=== PATIENT | female | born 1975 | race Caucasian/White ===

== ENCOUNTER 2020-01-26 11:20 | Day surgery (SDC) | payer OTHER ==
[~2020-01-26] VITALS: Ht 170.2 cm; Wt 49.4 kg
[2020-01-26] MEDS ORDERED: TOPA100T12 PO (13:06)
[2020-01-26] MEDS ORDERED: CELE20TA PO (13:06)
[2020-01-26] MEDS ORDERED: DULO1CAP4 PO (13:06)
[2020-01-26] MEDS ORDERED: KLON0.5T PO (13:06)
[2020-01-26] MEDS ORDERED: NS 1,000 ML IV ONE (13:15)
[2020-01-26] MEDS ORDERED: fentaNYL 100 MCG/2 ML INJECTION (J3010) As Ordered ONE (13:21)
[2020-01-26] MEDS ORDERED: LIDOCAINE 2% 100MG/5ML SDV (FOR ANES.) As Ordered ONE ×2 (13:21→13:45)
[2020-01-26] MEDS ORDERED: propofoL 200 MG/20 ML VIAL As Ordered ONE ×2 (13:21→13:45)
[2020-01-26 14:15] VITALS: BP 113/64
--- NOTE | 2020-02-11 11:30 | ROOR ---
Patient Name: Antonietta Burdick Procedure Date: 01/26/2020 11:43 AM Date of : 1975 Age: 44 Room: [facility] Gender: Female Note Status: Finalized Procedure: Upper Endoscopy + Biopsies Indications: Epigastric abdominal pain, Heartburn, Diarrhea Providers: Ilya Collazo MD Referring MD: Diego Molina MD Requesting Provider: Medicines: Monitored Anesthesia Care Complications: No immediate complications. Procedure: Pre-Anesthesia Assessment: - The heart rate, respiratory rate, oxygen saturations, blood pressure, adequacy of pulmonary ventilation, and response to care were monitored throughout the procedure. The Endoscope was introduced through the mouth, and advanced to the second part of duodenum. The upper GI endoscopy was accomplished without difficulty. The patient tolerated the procedure well. Findings: The Z-line was irregular and was found 40 cm from the incisors. Localized mildly erythematous mucosa without bleeding was found in the gastric antrum. Biopsies were taken with a cold forceps for Helicobacter pylori testing. The exam of the duodenum was otherwise normal. Biopsies for histology were taken with a cold forceps in the first portion of the duodenum for evaluation of celiac disease. The exam was otherwise without abnormality. Impression: - Z-line irregular, 40 cm from the incisors. - Erythematous mucosa in the antrum. Biopsied. - The examination was otherwise normal. - Biopsies were taken with a cold forceps for evaluation of celiac disease. - The examination was otherwise normal. Recommendation: - Patient has a contact number available for emergencies. The signs and symptoms of potential delayed complications were discussed with the patient. Return to normal activities tomorrow. Written discharge instructions were provided to the patient. - High fiber diet. - Discharge patient to home. - Follow an antireflux regimen. - Continue present medications. - Await pathology results. - Telephone GI clinic for pathology results in 1 week. - Return to referring physician. - The findings and recommendations were discussed with the patient. Ilya Collazo MD Ilya Collazo MD 01/26/2020 1:29:18 PM Number of Addenda: 0 Note Initiated On: 01/26/2020 11:43 AM Estimated Blood Loss: Estimated blood loss: none.
--- NOTE | 2020-02-11 11:30 | ROOR ---
Patient Name: Antonietta Burdick Procedure Date: 01/26/2020 11:42 AM Date of : 1975 Age: 44 Room: [facility] Gender: Female Note Status: Combination [employer] Over[employer] Procedure: Total Colonoscopy to Cecum + Bx. To r/o Microscopic Colitis Indications: Lower abdominal pain, Clinically significant diarrhea of unexplained origin Providers: Ilya Collazo MD Referring MD: Diego Molina MD Requesting Provider: Medicines: Monitored Anesthesia Care Complications: No immediate complications. Procedure: Pre-Anesthesia Assessment: - The heart rate, respiratory rate, oxygen saturations, blood pressure, adequacy of pulmonary ventilation, and response to care were monitored throughout the procedure. The Colonoscope was introduced through the anus and advanced to the cecum, identified by appendiceal orifice and ileocecal valve. The colonoscopy was performed without difficulty. The patient tolerated the procedure well. The quality of the bowel preparation was good. Findings: The perianal and digital rectal examinations were normal. No other significant abnormalities were identified in a careful examination of the remainder of the colon. Biopsies for histology were taken with a cold forceps from the ascending colon, transverse colon and descending colon for evaluation of microscopic colitis. The exam was otherwise without abnormality. Impression: - The examination was otherwise normal. - Biopsies were taken with a cold forceps from the ascending colon, transverse colon and descending colon for evaluation of microscopic colitis. - The exam was otherwise normal to the cecum. Recommendation: - Patient has a contact number available for emergencies. The signs and symptoms of potential delayed complications were discussed with the patient. Return to normal activities tomorrow. Written discharge instructions were provided to the patient. - High fiber diet. - Continue present medications. - Await pathology results. - Telephone GI clinic for pathology results in 1 week. - Repeat colonoscopy in 10 years for screening purposes. - Return to referring physician. - The findings and recommendations were discussed with the patient. Ilya Collazo MD Ilya Collazo MD 01/26/2020 1:48:47 PM Number of Addenda: 0 Note Initiated On: 01/26/2020 11:42 AM Estimated Blood Loss: Estimated blood loss: none.
== END 2020-01-26 14:23 | disposition home or self-care (01) ==
LOC: M OPP 11:20
PROVIDERS: ATTEND Internal Medicine Gastroenterology
DX: K52.832 Lymphocytic colitis (principal); R19.7 Diarrhea, unspecified; R11.0 Nausea; R63.4 Abnormal weight loss; R10.30 Lower abdominal pain, unspecified; K22.8 Other specified diseases of esophagus; K31.89 Other diseases of stomach and duodenum; R12 Heartburn; F17.210 Nicotine dependence, cigarettes, uncomplicated; Z79.899 Other long term (current) drug therapy; Z88.5 Allergy status to narcotic agent
CPT/HCPCS: 43239; 45380; 88305; J3010

== ENCOUNTER → 2020-02-03 | Outpatient (CLI) | payer OTHER ==
[~2020-02-03] MED LIST: CELE20TA PO; DULO1CAP4 PO; GASTROGRAFIN SOLUTION 30ML (Q9963) As Ordered ONE; ISOVUE-370 76% 100ML VIAL As Ordered ONE; KLON0.5T PO; TOPA100T12 PO
--- NOTE | 2020-02-10 10:45 | REP ---
CONTRAST ENHANCED CT ABDOMEN AND PELVIS CLINICAL: Abdominal pain and abnormal weight loss. TECHNIQUE: Axial contrast enhanced images from the lung bases to the pubic symphysis using oral (per protocol) and 100 mL intravenous contrast material with coronal and sagittal reformations. Precontrast images of the abdomen were obtained. FINDINGS: Lung bases are clear. Visualized heart and pericardium normal. Liver, spleen, pancreas, gallbladder, bilateral adrenal glands, and kidneys are normal. The enteric system is without obstruction or acute inflammatory process. Pelvis demonstrates normal bladder and evidence for prior hysterectomy. No ascites. No free air. No adenopathy. Abdominal aorta and vasculature without aneurysm or dissection. Musculoskeletal structures are intact. IMPRESSION: No acute abdominopelvic pathology appreciated. Evidence for prior hysterectomy. MTDD
== END ==
LOC: M RAD 11:33
PROVIDERS: ATTEND Internal Medicine Gastroenterology
DX: R63.4 Abnormal weight loss (principal); R10.10 Upper abdominal pain, unspecified
CPT/HCPCS: 74178; Q9963; Q9967